=== PATIENT | female | born 1950 | race Two or more races ===

== ENCOUNTER → 2023-07-01 07:41 | Outpatient (REF) | payer OTHER, SELFPAY ==
--- NOTE | ~2023-07-01 | NM_ITS ---
Myocardial perfusion study Indication: Shortness of breath on exertion Technique: The patient was brought in for a Lexiscan perfusion study on 07/01/2023. Patient performed low-level exercise and was injected 0.4 mg of Lexiscan intravenously. Within a minute of injection, 25 mCi of sestamibi was given intravenously. Images were obtained using the SPECT gamma camera interlaced with the gating device. Images were obtained in supine position. Resting perfusion study was performed on 07/07/2023. Patient was administered 25 mCi of sestamibi intravenously at rest. Images were then obtained in supine position. Images obtained with and without CT attenuation. Total DLP 127 mGy-cm. Images were processed with the software and compared side to side in short axis, horizontal long axis and vertical long axis views. Findings: The stress perfusion study showed normal uptake of radiotracer in all segments of LV myocardium on both attenuated as well as non attenuated corrected images. The gated study shows normal LV systolic function with calculated LVEF of 71%. LV cavity is normal size. The gated study shows normal systolic wall thickening and contraction of segments. Resting study shows mildly reduced uptake on attenuated corrected images with normal uptake on attenuated images. Gating at rest reveals normal systolic wall motion with visually estimated ejection fraction at greater than 60%. The findings are consistent with normal myocardial perfusion. NM/NM dalila perf SPECT rest & str Impression: 1. Myocardial perfusion imaging study shows normal myocardial perfusion 2. Gated LVEF is 71% 3. Transient ischemic dilatation not present EKG is nondiagnostic for ischemia
--- NOTE | 2023-07-01 07:47 | CA_ITS ---
Acquisition Time: 2023-07-01 07:56:40 Total Exercise Time: 00:02:00 Test Indications: Dyspnea Medications: ALBUTEROL ATORVASTATIN BUPROPION FAMOTIDINE FLOVEMY GLIPIZIDE HCTZ LISINOPRIL METFORMIN TRULICITY Protocol: LEXISCAN Max HR: 130 BPM 87% of Pred: 149 BPM Max BP: 128/080 mmHG Max Work Load: 1.0 METS Pharmacological stress test with Lexiscan injection while sitting still due to sinus tach, without anginal symptoms, without arrhythmais, with normotensive response to injection, with nondianoisitic EKGs. Aminophylline 75mg IVP given to reverse Lexiscan. Nuclear images pending. Test reviewed with Dr Francisco. PT has history of sinus tachycardia. at low 70s% MPHR at rest and upon standing went up to 80-84% MPHR. Referred By: Bebe Mancini Overread By: Vanda Ta
== END ==
LOC: HO.CARD 07:41
PROVIDERS: PCP Family Medicine; Visit Provider Family Medicine
DX: R06.09 Other forms of dyspnea (principal)
CPT/HCPCS: 78452; 93017; A9500; J0280; J2785

== ENCOUNTER → 2023-07-01 07:47 | Outpatient (BNV) | payer OTHER, SELFPAY | PROVIDERS: PCP Family Medicine; Visit Provider Nurse Practitioner | DX: R06.09 Other forms of dyspnea (principal) | CPT/HCPCS: 78452; 93016; 93018 ==